=== PATIENT | male | born 1955 | race Hispanic/Latino ===

== ENCOUNTER 2022-10-07 07:26 | Day surgery (SDC) | payer MEDICARE ==
[2022-10-05 12:02] VITALS: BP 150/75
[2022-10-05 12:15] LABS: BASOPHILS % (AUTO) 0.9 % (0.0-5.0); EOSINOPHILS % (AUTO) 5.5 % (0.0-8.0); HEMATOCRIT 44.1 % (42-54); LYMPHOCYTES % (AUTO) 30.5 % (21.0-51.0); MEAN CORPUSCULAR HEMOGLOBIN 31.3 pg (27.0-33.0); MEAN CORPUSCULAR HGB CONC 33.6 g/dL (32.0-36.0); MEAN CORPUSCULAR VOLUME 93.2 fL (79-99); MONOCYTES % (AUTO) 7.7 % (3.0-13.0); NEUTROPHILS % (AUTO) 55.2 % (40.0-77.0); PLATELET COUNT (AUTO) 261 K/uL (130-400); RED BLOOD CELL COUNT(AUTO) 4.73 MIL/uL (4.50-6.20); RED CELL DISTRIBUTION WIDTH 13.4 % (11.0-15.5); WHITE BLOOD COUNT (AUTO) 8.6 K/uL (4.8-10.8)
[2022-10-05 12:24] LABS: CREATININE 1.2 mg/dL (0.5-1.5); POTASSIUM 4.3 mmol/L (3.5-5.1)
[2022-10-07] VITALS (12 sets, daily range): BP systolic 112–144; BP diastolic 62–85
[~2022-10-07] VITALS: Ht 170.2 cm; Wt 100.3 kg
[~2022-10-07 07:26] MED LIST: ACET-2079 PO; ATOR10 PO; CEFTRIAXONE 1G VIAL IVPB SCH; DUTA0.5C37 PO; LOSA50TA64 PO
[2022-10-07] MEDS ORDERED: LACTATED RINGERS 1000ML 1,000 ML IV ONE (09:17)
[2022-10-07] MEDS ORDERED: LIDOCAINE PF 100MG/5ML (2%) SYRINGE 5ML ONE (10:19)
[2022-10-07] MEDS ORDERED: DEXAMETHASONE SOD PHOSPHATE 10MG/ML 1ML VIAL ONE (10:19)
[2022-10-07] MEDS ORDERED: SUCCINYLCHOLINE 200MG/10ML SYR ONE (10:19)
[2022-10-07] MEDS ORDERED: ROCURONIUM 10MG/1ML SYR 10 MG/ML ML ONE (10:20)
[2022-10-07] MEDS ORDERED: MIDAZOLAM HCL 1 MG/ML 2ML VIAL ONE (10:20)
[2022-10-07] MEDS ORDERED: ONDANSETRON 4MG INJ ONE (10:20)
[2022-10-07] MEDS ORDERED: NEOSTIGMINE 5MG/5ML SYR IV ONE (10:20)
[2022-10-07] MEDS ORDERED: GLYCOPYRROLATE 1 MG/5 ML SYRINGE ONE (10:20)
[2022-10-07] MEDS ORDERED: PROPOFOL 10 MG/ML 20ML VIAL IV ONE (10:21)
[2022-10-07] MEDS ORDERED: FENTANYL CITRATE PF 50 MCG/1 ML 2ML VIAL ONE ×2 (10:21→12:15)
[2022-12-15] MEDS ORDERED: CIPR500T10 PO (11:30)
== END 2022-10-07 14:30 | disposition home or self-care (01) ==
LOC: DAH 07:26
PROVIDERS: ATTEND Urology
DX: N32.0 Bladder-neck obstruction (principal); Z20.822 Contact with and (suspected) exposure to COVID-19; N21.0 Calculus in bladder; R39.14 Feeling of incomplete bladder emptying; I10 Essential (primary) hypertension; Z80.42 Family history of malignant neoplasm of prostate; Z85.46 Personal history of malignant neoplasm of prostate; Z79.899 Other long term (current) drug therapy; Z98.890 Other specified postprocedural states
CPT/HCPCS: 80048; 85025; 87426; 36415 ×2; 52500; 82360; A6260; A4663; A4344; A4354; J7120; J3010 ×2; J0330; J3490; J1100; J2710; J2001; J0696; J2250; J2704; J2405; A4358; C1769; A4215; A4223; A4222; A4221; A5113; A4600; A4510

== ENCOUNTER 2022-12-15 14:17 | Day surgery (SDC) | payer MEDICARE ==
[~2022-12-15] VITALS: Ht 170.2 cm; Wt 102.2 kg
[2022-12-15 11:01] LABS: BASOPHILS % (AUTO) 0.8 % (0.0-5.0); EOSINOPHILS % (AUTO) 3.5 % (0.0-8.0); HEMATOCRIT 43.8 % (42-54); LYMPHOCYTES % (AUTO) 31.7 % (21.0-51.0); MEAN CORPUSCULAR HGB CONC 32.9 g/dL (32.0-36.0); MEAN CORPUSCULAR VOLUME 94.4 fL (79-99); MONOCYTES % (AUTO) 10.6 % (3.0-13.0); NEUTROPHILS % (AUTO) 53.1 % (40.0-77.0); PLATELET COUNT (AUTO) 180 K/uL (130-400); RED BLOOD CELL COUNT(AUTO) 4.64 MIL/uL (4.50-6.20); RED CELL DISTRIBUTION WIDTH 13.4 % (11.0-15.5); WHITE BLOOD COUNT (AUTO) 9.1 K/uL (4.8-10.8)
[2022-12-15 11:07] LABS: CREATININE 1.1 mg/dL (0.5-1.5); POTASSIUM 4.2 mmol/L (3.5-5.1)
[2022-12-15 11:21] VITALS: BP 130/69
[~2022-12-15 14:17] MED LIST changes: -CEFTRIAXONE 1G VIAL IVPB SCH; +CIPR500T10 PO
[2022-12-16] VITALS (17 sets, daily range): BP systolic 111–134; BP diastolic 53–79
[2022-12-16] MEDS ORDERED: LEVOFLOXACIN 500 MG/D5W 100 ML 100 ML IV SCH (06:00)
[2022-12-16] MEDS ORDERED: LACTATED RINGERS 1000ML 1,000 ML IV ONE (08:27)
[2022-12-16] MEDS ORDERED: DEXAMETHASONE SOD PHOSPHATE 10MG/ML 1ML VIAL ONE (10:17)
[2022-12-16] MEDS ORDERED: SUCCINYLCHOLINE 200MG/10ML SYR ONE (10:17)
[2022-12-16] MEDS ORDERED: MIDAZOLAM HCL 1 MG/ML 2ML VIAL ONE (10:17)
[2022-12-16] MEDS ORDERED: LIDOCAINE PF 100MG/5ML (2%) SYRINGE 5ML ONE (10:17)
[2022-12-16] MEDS ORDERED: ROCURONIUM 10MG/1ML SYR 10 MG/ML ML ONE (10:18)
[2022-12-16] MEDS ORDERED: FENTANYL CITRATE PF 50 MCG/1 ML 2ML VIAL ONE (10:18)
[2022-12-16] MEDS ORDERED: PROPOFOL 10 MG/ML 20ML VIAL IV ONE (10:18)
[2022-12-16] MEDS ORDERED: ONDANSETRON 4MG INJ ONE (10:18)
[2022-12-16] MEDS ORDERED: EPHEDRINE SULFATE 50 MG/ML AMPULE ONE (10:56)
[2022-12-16] MEDS ORDERED: MEPERIDINE-PF 25 MG/ML SYG ONE (11:09)
[2022-12-16] MEDS ORDERED: NEOSTIGMINE 5MG/5ML SYR IV ONE (11:10)
[2022-12-16] MEDS ORDERED: GLYCOPYRROLATE 1 MG/5 ML SYRINGE ONE (11:10)
[2022-12-16] MEDS ORDERED: PHENAZOPYRIDINE HCL 200 MG TABLET ONE (12:29)
== END 2022-12-16 12:55 | disposition home or self-care (01) ==
LOC: DAH 14:17
PROVIDERS: ATTEND Urology
DX: N32.0 Bladder-neck obstruction (principal); Z20.822 Contact with and (suspected) exposure to COVID-19; N40.1 Benign prostatic hyperplasia with lower urinary tract symptoms; R39.14 Feeling of incomplete bladder emptying; R33.8 Other retention of urine; I10 Essential (primary) hypertension; Z79.899 Other long term (current) drug therapy; Z79.01 Long term (current) use of anticoagulants; Z98.890 Other specified postprocedural states
CPT/HCPCS: 80048; 85025; 87426; 36415; 93005; 52640; A6260; A4663; J7120 ×2; A4344; A4354; J3010; J0330; J3490 ×2; J1100; J2710; J1956; J2001; J2250; J2704; J2405; J2175; A4358; C1769; A4215; A4223; A4222; A4221; A4510; A5113; A4600

== ENCOUNTER 2023-02-21 16:50 | Observation (INO) | payer MEDICARE ==
[2023-02-21] VITALS (20 sets, daily range): BP systolic 114–150; BP diastolic 54–86; PULSE 70–94; RESP 12–22; O2SAT 98
[~2023-02-21] VITALS: Ht 167.6 cm; Wt 106.2 kg
[2023-02-21 17:47] LABS: HEMATOCRIT 44.9 % (42-54); MEAN CORPUSCULAR HEMOGLOBIN 30.9 pg (27.0-33.0); MEAN CORPUSCULAR HGB CONC 33.9 g/dL (32.0-36.0); MEAN CORPUSCULAR VOLUME 91.3 fL (79-99); RED BLOOD CELL COUNT(AUTO) 4.92 MIL/uL (4.50-6.20); RED CELL DISTRIBUTION WIDTH 13.3 % (11.0-15.5); WHITE BLOOD COUNT (AUTO) 8.7 K/uL (4.8-10.8)
[2023-02-21 17:57] LABS: CREATININE 1.3 mg/dL (0.5-1.5)
[2023-02-21 17:59] LABS: INR 0.94 (0.85-1.15); PROTHROMBIN TIME 10.9 SEC (9.6-11.6)
[2023-02-21 18:02] LABS: ALBUMIN 3.9 g/dL (3.5-5.0); BILIRUBIN,TOTAL 0.5 mg/dL (0.2-1.0); TOTAL PROTEIN, SERUM 7.9 g/dL (6.0-8.3)
[2023-02-21] MEDS ORDERED: ROCURONIUM 10MG/1ML SYR 10 MG/ML ML ONE (19:57)
[2023-02-21] MEDS ORDERED: SUCCINYLCHOLINE 200MG/10ML SYR ONE (19:57)
[2023-02-21] MEDS ORDERED: PROPOFOL 10 MG/ML 20ML VIAL IV ONE (19:57)
[2023-02-21] MEDS ORDERED: MIDAZOLAM HCL 1 MG/ML 2ML VIAL ONE (19:57)
[2023-02-21] MEDS ORDERED: FENTANYL CITRATE PF 50 MCG/1 ML 2ML VIAL ONE (19:57)
[2023-02-21] MEDS ORDERED: CEFTRIAXONE 1G VIAL IVPB ONE (20:15)
[2023-02-21] MEDS ORDERED: CEFTRIAXONE 1G VIAL ONE (20:19)
[2023-02-21] MEDS ORDERED: GLYCOPYRROLATE 1 MG/5 ML SYRINGE ONE (20:22)
[2023-02-21] MEDS ORDERED: GENTAMICIN SULFATE 80 MG/2 ML VIAL ONE (20:38)
[2023-02-21] MEDS ORDERED: ONDANSETRON 4MG INJ ONE (21:10)
[2023-02-21] MEDS ORDERED: MEPERIDINE-PF 25 MG/ML SYG ONE (21:10)
[2023-02-22] VITALS: BP 136/68; PULSE 73; RESP 18
[2023-02-22] MEDS ORDERED: LACTATED RINGERS 1000ML 1,000 ML IV SCH (00:30)
[2023-02-22 01:00] VITALS: BP 126/56; PULSE 76; RESP 18
[2023-02-22 02:00] VITALS: BP 127/64; PULSE 67; RESP 16
[2023-02-22 03:00] VITALS: BP 118/63; PULSE 63; RESP 18
[2023-02-22 04:00] VITALS: BP 124/64; PULSE 71; RESP 16
[2023-02-22 08:00] VITALS: BP 113/68; PULSE 62; RESP 18; O2SAT 98
[2023-02-22] MEDS ORDERED: CEFTRIAXONE 1G VIAL IVPB ONE (08:00)
[2023-02-22] MEDS ORDERED: LOSARTAN 50 MG TABLET PO SCH (08:00)
[2023-02-22] MEDS ORDERED: PHENAZOPYRIDINE HCL 200 MG TABLET PO SCH (09:00)
== END 2023-02-22 11:16 | disposition home or self-care (01) ==
LOC: EDH 16:50 → 3AH 19:34
PROVIDERS: ADMIT Urology; ATTEND Urology
DX: N32.0 Bladder-neck obstruction (principal); R33.9 Retention of urine, unspecified; I10 Essential (primary) hypertension; E66.9 Obesity, unspecified; Z79.899 Other long term (current) drug therapy
CPT/HCPCS: 51700; 52640; 96374; 80053; 85027; 85610; 87077; 87088; 87186; 36415; G0378 ×14; J7120; A4354; C1758; J3010; J0330; J3490; J1580; J0696 ×3; J2704; J2405; J2175; A5113; A4315; A4358; A4930; J2250